=== PATIENT | male | born 1985 | race Caucasian/White ===

== ENCOUNTER 2024-11-27 17:40 | Emergency (ER) | payer OTHER, SELFPAY ==
[2024-11-27] VITALS (11 sets, daily range): BP systolic 128–145; BP diastolic 68–95; PULSE 74–96; RESP 12–18; TEMP 37.1–37.3; O2SAT 97–100; BMI 22.9
--- NOTE | 2024-11-27 18:02 | ED.FALL ---
HPI - Fall <Antonia Mckeon PA-C - Last Filed: 11/27/24 19:20> General Chief Complaint: Fall Stated Complaint: Fall, Shoulder Pain Time Seen by Provider: 11/27/24 17:48 Source: patient Mode of arrival: Ambulatory History of Present Illness HPI Narrative: Mr. Son is a very pleasant 39-year-old male Right hand dominant with no reported past medical history who presents to the emergency department for right shoulder pain and injury that occurred earlier today. Patient was on his boat when he attempted to jump over an open [place] but he accidentally fell in. States that he fell about 3 ft down landing upright however his right shoulder was extended with his arm behind him and this extended arm got stuck/head on the way down. He has had right shoulder pain and limited range of motion since this injury. His pain is mild when he is holding his arm in position of comfort which is with the right arm dangling down at his side. He has very limited/no range of motion. He denies any other injuries from the fall, he landed upright very slowly and did not hit his head. He denies any numbness tingling or weakness of the right arm, he has no pain of the right elbow, forearm, wrist or hand. No medications prior to arrival. Related Data Allergies Allergy/AdvReac Type Severity Reaction Status Date / Time No Known Drug Allergies Allergy Verified 11/27/24 17:57 Review of Systems <Antonia Mckeon PA-C - Last Filed: 11/27/24 19:20> Review of Systems ROS Unobtainable: All systems reviewed & are unremarkable except as noted in HPI and below Patient History <Antonia Mckeon PA-C - Last Filed: 11/27/24 19:20> Social History Smoking Status: Never smoker Smoking Status: Never smoker Exam <Antonia Mckeon PA-C - Last Filed: 11/27/24 19:20> Narrative Exam Narrative: GENERAL: 39 year old patient appears stated age. Well-developed patient, in no acute distress. HEAD: Atraumatic. Normocephalic. EYES: PERRL. Extraocular motions intact. No scleral icterus. No injection or drainage. ENT: Nose without bleeding, purulent drainage. NECK: Trachea midline. Cervical ROM intact. CARDIOVASCULAR: Regular rate and rhythm. RESPIRATORY: ?Nonlabored respirations. ?Speaking in clear, full sentences. ?Clear to auscultation. Breath sounds equal bilaterally. No wheezes, rales, or rhonchi. ? EXTREMITIES: Holding right arm drooping down by side in position of comfort. On the lateral aspect of the right shoulder there is a soft palpable divot where the humeral head typically would like. Patient has only about 10? of abduction, flexion and extension range of motion. He has no tenderness to palpation of the clavicle, anterior lateral or posterior shoulder. No tenderness to palpation proximal humerus, elbow, forearm, wrist, snuffbox. Strong radial pulses bilaterally. Strength and sensation to light touch intact in the distribution of the median, radial, ulnar nerves bilaterally. BACK: Nontender without deformity or crepitance. No flank tenderness. NEURO: AOx3. ?Clear speech. ?Steady gait. SKIN: Superficial abrasion right anterior ny Initial Vital Signs Initial Vital Signs: Vital Signs Temperature 99 F 11/27/24 17:53 Pulse Rate 81 11/27/24 17:53 Respiratory Rate 18 11/27/24 17:53 Blood Pressure 141/95 H 11/27/24 17:53 Pulse Oximetry 100 11/27/24 17:53 Oxygen Delivery Method Room Air 11/27/24 17:53 <Familia Hartmann MD - Last Filed: 11/28/24 05:45> Initial Vital Signs Initial Vital Signs: Vital Signs Temperature 99 F 11/27/24 17:53 Pulse Rate 81 11/27/24 17:53 Respiratory Rate 18 11/27/24 17:53 Blood Pressure 141/95 H 11/27/24 17:53 Pulse Oximetry 100 11/27/24 17:53 Oxygen Delivery Method Room Air 11/27/24 17:53 Procedures <Familia Hartmann MD - Last Filed: 11/28/24 05:45> Orthopedic Joint Reduction Joint #1: Time of procedure: 19:53 Side: right Joint Reduction Location: shoulder Analgesia: procedural sedation Shoulder Technique Used (if applicable): external rotation (And have been maneuver external rotation, adduction, internal rotation, single attempt, palpable and visible reduction, placed into sling) Post-reduction neuro exam: intact Post Reduction X-Ray Obtained: Yes Post Reduction X-Ray Results: reduced Splint Applied: Yes Patient Tolerated Procedure: Well Procedural Sedation Time of procedure: 19:45 Consent signed: Yes Indication: fracture/dislocation reduction (Closed right anterior shoulder dislocation reduction) Presedation Evaluation: Low risk, prior propofol for hand surgery noted in the past ASA Class: I Mallampati Airway Classification: Class I Time of Last PO Intake: 12:00 Preparation: funeral pre arrangement specialist applied, pulse oximeter, capnometry used, suction/airway equipment at bedside and IV secured Fentanyl: IV Fentanyl dose (mcg): 25 IV Propofol dose (mg): 180 ED Sedation Level: Moderate (Concious) Patient Tolerated Procedure: Well and No complications Complications: none Additional Comments: Tolerated procedure well, no airway interventions, returned to preprocedure mental status. Course <Antonia Mckeon PA-C - Last Filed: 11/27/24 19:20> Orders Ordered: Discontinued Medications Fentanyl (Fentanyl 100 Mcg/2 Ml Inj) 25 mcg IV NOW ONE Stop: 11/27/24 19:16 Last Admin: 11/27/24 19:23 Dose: 25 mcg Documented By: YON Propofol (Propofol 200 Mg/20 Ml Vial) 200 mg IV NOW ONE Stop: 11/27/24 19:22 Last Admin: 11/27/24 19:39 Dose: 180 mg Documented By: YON Vital Signs Vital signs: Vital Signs - 8 hr 11/27/24 17:53 11/27/24 19:19 11/27/24 19:19 Temperature 99 F Pulse Rate 81 77 Respiratory Rate 18 12 Blood Pressure 141/95 H 142/84 H Pulse Oximetry 100 100 Oxygen Delivery Method Room Air 11/27/24 19:29 11/27/24 19:30 11/27/24 19:31 Temperature 99.2 F 98.7 F Pulse Rate 94 H 96 H 88 Respiratory Rate 14 15 14 Blood Pressure 142/84 H 128/68 Pulse Oximetry 99 99 99 Oxygen Delivery Method 11/27/24 19:39 11/27/24 19:39 11/27/24 19:40 Temperature Pulse Rate 95 H Respiratory Rate 13 Blood Pressure 141/71 H 128/68 Pulse Oximetry 99 Oxygen Delivery Method 11/27/24 19:40 11/27/24 19:44 11/27/24 19:45 Temperature Pulse Rate 94 H 85 Respiratory Rate 17 13 Blood Pressure 136/90 Pulse Oximetry 97 99 Oxygen Delivery Method <Familia Hartmann MD - Last Filed: 11/28/24 05:45> Orders Ordered: Discontinued Medications Fentanyl (Fentanyl 100 Mcg/2 Ml Inj) 25 mcg IV NOW ONE Stop: 11/27/24 19:16 Last Admin: 11/27/24 19:23 Dose: 25 mcg Documented By: YON Propofol (Propofol 200 Mg/20 Ml Vial) 200 mg IV NOW ONE Stop: 11/27/24 19:22 Last Admin: 11/27/24 19:39 Dose: 180 mg Documented By: YON Vital Signs Vital signs: Vital Signs - 8 hr 11/27/24 17:53 11/27/24 19:19 11/27/24 19:19 Temperature 99 F Pulse Rate 81 77 Respiratory Rate 18 12 Blood Pressure 141/95 H 142/84 H Pulse Oximetry 100 100 Oxygen Delivery Method Room Air 11/27/24 19:29 11/27/24 19:30 11/27/24 19:31 Temperature 99.2 F 98.7 F Pulse Rate 94 H 96 H 88 Respiratory Rate 14 15 14 Blood Pressure 142/84 H 128/68 Pulse Oximetry 99 99 99 Oxygen Delivery Method 11/27/24 19:39 11/27/24 19:39 11/27/24 19:40 Temperature Pulse Rate 95 H Respiratory Rate 13 Blood Pressure 141/71 H 128/68 Pulse Oximetry 99 Oxygen Delivery Method 11/27/24 19:40 11/27/24 19:44 11/27/24 19:45 Temperature Pulse Rate 94 H 85 Respiratory Rate 17 13 Blood Pressure 136/90 Pulse Oximetry 97 99 Oxygen Delivery Method MDM - Fall <Antonia Mckeon PA-C - Last Filed: 11/27/24 19:20> Medical Records Medical records narrative: None available for review Imaging Data Right Shoulder X-Ray: My Impression: On my independent interpretation there is an anterior right shoulder dislocation Radiologist's Impression: PROCEDURE: XR SHOULDER RT MIN 2V INDICATIONS: fall into hole, R shoulder extended, pain no ROM TECHNIQUE: 2 views of the shoulder were acquired. COMPARISON: None. FINDINGS: Bones: Anterior dislocation of the right glenohumeral joint. No suspicious bony lesions. Visualized ribs appear intact. Soft tissues: No suspicious soft tissue calcifications. IMPRESSION: Anterior dislocation of the right glenohumeral joint. Recommend follow-up imaging after relocation. Dictated by: Bora Barillas M.D. on 11/27/2024 at 19:01 Approved by: Bora Barillas M.D. on 11/27/2024 at 19:02 Chest x-ray: Radiologist's Impression: PROCEDURE: XR CHEST 1V INDICATIONS: R shoulder injury TECHNIQUE: One view of the chest was acquired. COMPARISON: None. FINDINGS: Surgical changes and devices: None. Lungs and pleura: Lungs are clear. No pleural effusions or pneumothorax. Mediastinum: Mediastinal contours appear normal. Heart size is normal. Bones and chest wall: No suspicious bony lesions. Right shoulder dislocation. Overlying soft tissues appear unremarkable. IMPRESSION: No acute cardiopulmonary abnormality is seen. Right shoulder dislocation. Dictated by: Bora Barillas M.D. on 11/27/2024 at 19:04 Approved by: Bora Braillas M.D. on 11/27/2024 at 19:05 [facility] Narrative Medical decision making narrative: 39-year-old male Right hand dominant with no reported past medical history who presents to the emergency department for right shoulder pain and injury that occurred earlier today. Differential diagnosis includes but is not limited to right shoulder dislocation, right shoulder fracture, rotator cuff injury, soft tissue injury, etc. On exam patient is in no acute distress, nontoxic appearing, vital signs within normal limits. His upper extremities are neurovascularly intact. He is holding his right arm dripping against decide in position of comfort, he is very limited range of motion and he does have a soft palpable divot on his proximal right shoulder, concerning for a dislocation. He sustained no other injuries from the fall. We will obtain x-ray of the right shoulder in addition to chest. We will hold off on pain medication until need for reduction is determined, patient in no severe pain at this time. Reviewed right shoulder x-ray at the bedside, shoulder is dislocated, we will need to be moved to the main emergency department for higher level of care/reduction. Patient is aware of the plan and agreeable. Nighttime physician Dr. Hartmann aware of patient, IV fentanyl ordered for pain control. <Familia Hartmann MD - Last Filed: 11/28/24 05:45> Imaging Data Extremity x-ray #2: Radiologist's Impression: [address] [address] XRay Report Signed Patient: Zack Son MR#: [id number] : 1985 Acct:[id number] Age/Sex: 39 / M Date of Service: 11/27/24 Loc: ED Accession Number: [id number] Procedure: XR shoulder RT 2+ views Ordering Provider: Familia Hartmann MD PROCEDURE: XR SHOULDER RT MIN 2V INDICATIONS: post reduction XRays TECHNIQUE: 2 views of the shoulder were acquired. COMPARISON: [facility], CR, XR SHOULDER RT 2+ VIEWS, 11/27/2024, 18:01. FINDINGS: Bones: No fractures identified. Relocation of the glenohumeral joint. No suspicious bony lesions. Visualized ribs appear intact. Soft tissues: No suspicious soft tissue calcifications. IMPRESSION: Relocation of the glenohumeral joint. Consider follow-up MRI. Dictated by: Bora Barillas M.D. on 11/27/2024 at 20:23 Approved by: Bora Barillas M.D. on 11/27/2024 at 20:25 [facility] Narrative Medical decision making narrative: 39-year-old male Right hand dominant with no reported past medical history who presents to the emergency department for right shoulder pain and injury that occurred earlier today. Differential diagnosis includes but is not limited to right shoulder dislocation, right shoulder fracture, rotator cuff injury, soft tissue injury, etc. On exam patient is in no acute distress, nontoxic appearing, vital signs within normal limits. His upper extremities are neurovascularly intact. He is holding his right arm dripping against decide in position of comfort, he is very limited range of motion and he does have a soft palpable divot on his proximal right shoulder, concerning for a dislocation. He sustained no other injuries from the fall. We will obtain x-ray of the right shoulder in addition to chest. We will hold off on pain medication until need for reduction is determined, patient in no severe pain at this time. Reviewed right shoulder x-ray at the bedside, shoulder is dislocated, we will need to be moved to the main emergency department for higher level of care/reduction. Patient is aware of the plan and agreeable. Nighttime physician Dr. Hartmann aware of patient, IV fentanyl ordered for pain control. 11/27/24, Bekah, Shahbaz. Sign-out from BRITTANIE Mckeon. 39-year-old male with history of prior right shoulder subluxation like symptoms in the past, no shoulder surgical interventions, fell through open [place]eda of his boat earlier today, while hanging onto something, pulled his right shoulder, painful right shoulder worse with any attempted movement. Chest x-ray negative. X-ray right shoulder shows anterior dislocation without obvious fracture. Referred from fast track for conscious sedation and reduction procedure. Assumed care. X-ray findings discussed with patient, verbal consent for conscious sedation, then signed consent for conscious sedation. Exam right shoulder with anterior fullness and lateral step-off, consistent with radiographic anterior shoulder dislocation. NPO since noon fish today. IV propofol ordered. Right anterior closed shoulder dislocation reduced with IV propofol sedation, see separate sedation and separate procedure notes. Greenlee technique single attempt with palpable and visible reduction, post reduction x-rays anatomic. Placed in his sling. Discharged home with who is a physical therapist and we will work with him for strengthening. Consider follow up with Orthopedic surgery, contact information given for office of Dr. Oscar Mchugh. [id number] pain medications discussed. Follow up with physical therapy and orthopedic surgery. Discharged home with family. Discharge Plan Departure Patient Disposition: Home Clinical Impression: Anterior dislocation of right glenohumeral joint Activity Restrictions/Additional Instructions: Fall through boat mosqueda, with extension of right arm and dislocation, no obvious fracture on pre reduction x-ray series per Radiology report. IV conscious sedation with single attempt reduction had not been type maneuver, palpable and visible reduction. Post reduction x-ray confirms anatomic position, no obvious fractures. Placed into a shoulder sling. Consider follow up with Orthopedic surgery, as it might be useful for post dislocation care to have reexamination, perhaps physical therapy for joint strengthening. Clinic contact information given for Orthopedic surgery on-call Dr. Mchugh. Return earlier to this/nearest emergency department for any change worsening symptoms or any concerns prior. Referrals: Mesha Mchugh MD [Physician] - Stand Alone Forms: Patient Portal/API/Survey
[2024-11-27] MEDS: fentaNYL 100 MCG/2 ML INJ 25 MCG IV (19:23)
[2024-11-27] MEDS: propofoL 200 MG/20 ML VIAL IV (19:39)
--- NOTE | 2024-11-27 19:44 | PC.NURSE ---
Patient had a total of 180mg propofol and was alert and talkative during the procedure. He reported adequate pain control before during and after the procedure.
--- NOTE | 2024-11-27 19:45 | DI.RAD.S_ITS ---
PROCEDURE: XR SHOULDER RT MIN 2V INDICATIONS: post reduction XRays TECHNIQUE: 2 views of the shoulder were acquired. COMPARISON: [facility], CR, XR SHOULDER RT 2+ VIEWS, 11/27/2024, 18:01. FINDINGS: Bones: No fractures identified. Relocation of the glenohumeral joint. No suspicious bony lesions. Visualized ribs appear intact. Soft tissues: No suspicious soft tissue calcifications. IMPRESSION: Relocation of the glenohumeral joint. Consider follow-up MRI. Dictated by: Bora Barillas M.D. on 11/27/2024 at 20:23 Approved by: Bora Barillas M.D. on 11/27/2024 at 20:25
== END 2024-11-27 20:17 | disposition home or self-care (01) ==
PROVIDERS: Emergency Provider Emergency Medicine
DX: S43.014A Anterior dislocation of right humerus, initial encounter (principal); W17.89XA Other fall from one level to another, initial encounter; Y92.814 Boat as the place of occurrence of the external cause
CPT/HCPCS: 23650; 71045; 73030; 96374; 99152; 99284; J2704; J3010